=== PATIENT | male | born 1980 | race Asian ===

== ENCOUNTER 2019-05-15 12:12 | Emergency (ER) | payer BC ==
[~2019-05-15] VITALS: Ht 172.7 cm; Wt 88.0 kg
[2019-05-15 14:00] VITALS: BP 117/65; TEMP 97.8
== END 2019-05-15 14:00 | disposition home or self-care (01) ==
LOC: ED 12:12
DX: M10.9 Gout, unspecified (principal)
CPT/HCPCS: 96372; 99283; J1885